=== PATIENT | female | born 1960 | race African-American/Black ===

== ENCOUNTER 2019-11-03 20:26 | Emergency (ER) | payer OTHER, SELFPAY ==
--- NOTE | ~2019-11-03 | XR_ITS ---
EXAMINATION: XR chest 1V INDICATION: Right-sided facial numbness TECHNIQUE: PA view of the chest is obtained. COMPARISON: None available FINDINGS: The lungs are free of acute opacities. There is no pleural effusion or pneumothorax. The ca rdiomediastinal silhouette is normal. There appear to be changes of right distal clavicle resection. IMPRESSION: 1. No acute cardiopulmonary abnormality. Reviewed, dictated and finalized at location A.
--- NOTE | ~2019-11-03 | CT_ITS ---
EXAMINATION: CTA brain carotid DATE: 11/03/2019 22:47 INDICATION: Headache and right lower facial numbness TECHNIQUE: Computed tomographic angiography (CTA) of the head was performed without and with 100 mL O mnipaque-350 intravenous contrast. CTA of the neck was performed with intravenous contrast. The dose- length product was 1758.03 mGy-cm. Maximum intensity projection and volume rendered 3D-reconstruction s were created by the technologist on a separate workstation. Automated exposure control and iterativ e reconstruction technique were employed. COMPARISON: None. FINDINGS: HEAD CTA: There is no intracranial hemorrhage, acute infarction, or abnormal mass lesion. The ventric les are normal. There is no abnormal mass effect or midline shift. The starkey-white matter differentiat ion is normal. The basal cisterns are patent. The orbits are normal. The paranasal sinuses, mastoids and calvarium are normal. There is no significant stenosis of the basilar artery or posterior cerebral arteries. There is no si gnificant stenosis of the intracranial internal carotid arteries or the anterior or middle cerebral a rteries. The anterior communicating artery and posterior communicating arteries are normal. There is no aneurysm. NECK CTA: Nodules of the left thyroid lobe measure up to 1.6 cm. The submandibular and parotid glands are symmetric. There is no lymphadenopathy. There are no masses identified. The airway is unremarkab le. There are no osseous abnormalities. The superior mediastinum is unremarkable. There is 0% stenosis of the proximal right internal carotid artery relative to normal distal artery l umen diameter (NASCET criteria). There is 0% stenosis of the proximal left internal carotid artery re lative to normal distal artery lumen diameter. IMPRESSION: 1. No acute intracranial abnormality. Normal head CTA. 2. 0% stenosis of the proximal right internal carotid artery relative to normal distal artery lumen d iameter (NASCET criteria). 3. 0% stenosis of the proximal left internal carotid artery relative to normal distal artery lumen di ameter. 4. Nodules of the left thyroid lobe. Consider nonemergent thyroid ultrasound for risk stratification. Reviewed, dictated and finalized at location A. IMPRESSION: 1. No acute intracranial abnormality. Normal head CTA. 2. 0% stenosis of the proximal right internal carotid artery relative to normal distal artery lumen diameter (NASCET criteria). 3. 0% stenosis of the proximal left internal carotid artery relative to normal distal artery lumen diameter. 4. Nodules of the left thyroid lobe. Consider nonemergent thyroid ultrasound fo r risk stratification.
[2019-11-03 20:35] VITALS: BP 151/86; PULSE 78; RESP 17; TEMP 36.4; O2SAT 98
--- NOTE | 2019-11-03 21:03 | ECG_ITS ---
Measurements Intervals [place] Rate: 61 P: 46 LA: 162 QRS: 41 QRSD: 97 T: -3 QT: 417 QTc: 421 Interpretive Statements SINUS RHYTHM BORDERLINE ST-T WAVE ABNORMALITY- ANTEROLAT/INF LEADS BASELINE ARTIFACT- I, III BORDERLINE ECG Electronically Signed On 11-04-2019 7:13:06 CDT by Yosi Nunez D.O.
[2019-11-03 21:34] LABS: Basophils Percent Auto 0.7 % (0.2-1.2); Eosinophils Absolute Auto 0.1 K/mm3 (0-0.3); Hematocrit 39.9 % (37.0-47.0); Hemoglobin 13.1 g/dL (12.0-15.0); Immature Granulocyte Absolute 0.01 K/mm3 (0.00-0.031); Immature Granulocyte Percent A 0.2 % (0-0.5); Lymphocytes Absolute Auto 2.79 K/mm3 (0.9-3.2); Lymphocytes Percent Auto 47.1 % (18.3-44.2); Mean Corpuscular HGB Conc 32.8 g/dl (32-36); Mean Corpuscular Volume 91.5 fl (80-100); Mean Platelet Volume 10.6 fl (7.4-10.4); Monocytes Absolute Auto 0.4 K/mm3 (0.1-0.6); Monocytes Percent Auto 6.9 % (2.6-8.5); Neutrophils Absolute Auto 2.6 K/mm3 (1.3-6.7); Neutrophils Percent Auto 44.1 % (45.5-73.1); Platelet Count Result 248 k/mm3 (150-375); Red Blood Count 4.36 M/mm3 (4.2-5.4); White Blood Count 5.9 K/mm3 (4.5-10.0)
[2019-11-03 21:44] LABS: Prothrombin Time 12.5 Seconds (11.1-14.7)
[2019-11-03 21:45] LABS: Partial Thromboplastin Time 24.4 SECONDS (22.3-36.8)
[2019-11-03 21:48] LABS: Blood Urea Nitrogen 15 mg/dL (7-17); Calcium 8.8 mg/dL (8.4-10.2); Carbon Dioxide 29 mmol/L (22-30); Chloride 108 mmol/L (98-107); Estimated CRCL calculation 88 ml/min; Estimated Glomerular Filt Rate > 60; Glucose 82 mg/dL (65-105); Potassium 3.8 mmol/L (3.4-5.0); Sodium 143 mmol/L (137-145)
--- NOTE | 2019-11-03 21:52 | ED.NEUROSD ---
HPI - Neuro Symptoms/Deficit General Chief Complaint: Neuro Symptoms/Deficit Stated Complaint: numbness for a week Time Seen by Provider: 11/03/19 21:31 History of Present Illness HPI Narrative: Patient presents with right cheek numbness for 1 week. She talked to her primary care physician about it today and he sent her to the ER to be checked for stroke. She has a history of hypertension that is well controlled, and she takes an aspirin a day. She does not have diabetes, but she does have gastroparesis. She had some vomiting 3 days ago, and continues to have intermittent nausea. She is on disability for, hypertension, hypercholesterolemia, and bilateral knee arthritis. She cares for her grown autistic daughter. She also cares for her father with mild dementia. She has no weakness, no pain, and has not been sick. She does not smoke cigarettes, drink alcohol, or do drugs. Onset (ago): week(s) Location: right face History of same: No Severity: mild Relieving factors: none Exacerbating factors: none Context: gradual onset Associated symptoms: denies other symptoms Treatments Prior to Arrival: Aspirin Related Data Allergies Allergy/AdvReac Type Severity Reaction Status Date / Time metronidazole Allergy Mild Rash Verified 09/17/13 09:14 Sulfa (Sulfonamide Allergy Mild RASH, Verified 09/17/13 09:14 Antibiotics) ITCHING clindamycin Allergy Unknown Verified 06/15/10 11:34 sulfanilamide Allergy Unknown Verified 06/15/10 11:34 Review of Systems Review of Systems: Narrative: CONSTITUTIONAL: Denies fever, chills, or sweats. EYES: Denies visual changes, redness, or discharge. ENT: Denies rhinorrhea, congestion, sore throat, or otalgia. CARDIOVASCULAR: Denies chest pain, palpitations, or edema. RESPIRATORY: Denies cough or dyspnea. GASTROINTESTINAL: Denies abdominal pain, but she does have nausea, and vomiting intermittently. GENITOURINARY: Denies dysuria or hematuria. SKIN: Denies rash or itching. MUSCULOSKELETAL: Denies back pain, joint pain, or myalgia. NEUROLOGIC: Denies headache, but does have facial numbness. PSYCHIATRIC: Denies anxiety or depression. All systems reviewed & are unremarkable except as noted in HPI and below PMFSH Past Medical History Medical History Gastroparesis Hypertension Morbid obesity Surgical History Surgical History History of tubal ligation Family History Family History (Updated 07/21/16 @ 23:56 by DOCTOR UNKNOWN) Father Hypertension Family history of elevated blood lipids Family history of diabetes mellitus in first degree relative Sibling Hypertension Family history of elevated blood lipids Family history of malignant neoplasm of breast in first degree relative, Onset Age: 54 Mother Family history of elevated blood lipids Cerebrovascular accident Family history of diabetes mellitus in first degree relative Family history of coronary artery disease, Onset Age: 71 Patient's mother is Other Family history of malignant neoplasm of breast Social History Social History Smoking status: Never smoker Second hand tobacco smoke exposure: No Alcohol intake: current Gender identity (if verbalized by the patient): Female Exam Narrative: Exam Narrative: GENERAL: Well-appearing, well-nourished, and in no acute distress. Overweight. HEAD: Normocephalic, atraumatic. EYES: PERRLA and EOMI. ENT: Nares clear, no rhinorrhea or epistaxis. Mucous membranes moist. NECK: Supple. CHEST: Clear to auscultation. No respiratory distress. HEART: Regular rate and rhythm. No murmur heard. Normal peripheral pulses. ABDOMEN: Soft, nontender, nondistended, normal active bowel sounds. EXTREMITIES: Normal range of motion. No edema. SKIN: Warm, dry, no rash. NEURO: No focal deficits. Alert and oriented x3
[2019-11-03 21:56] VITALS: BP 165/87; PULSE 56; RESP 18; O2SAT 98
--- NOTE | 2019-11-03 21:59 | PC.NURSE ---
Patient bedside glucose 87.
[2019-11-03 22:00] LABS: Troponin I < 0.012 ng/mL (0.000-0.034)
[2019-11-03 22:07] LABS: Glucose Point of Care 87 (65-105)
[2019-11-03 23:24] VITALS: BP 160/79; PULSE 75; RESP 20; TEMP 36.6; O2SAT 100
== END 2019-11-03 23:27 | disposition home or self-care (01) ==
PROVIDERS: Emergency Medicine Emergency Medical Services; Emergency Provider Emergency Medicine; PCP Emergency Medicine
DX: K31.84 Gastroparesis (principal); I10 Essential (primary) hypertension; Z79.82 Long term (current) use of aspirin; E66.01 Morbid (severe) obesity due to excess calories; Z68.41 Body mass index [BMI] 40.0-44.9, adult
CPT/HCPCS: 36415; 70496; 70498; 71045; 80048; 82948; 84484; 85025; 85610; 85730; 93005; 99284; Q9967

== ENCOUNTER 2020-01-30 16:36 | Outpatient (CLI) | payer OTHER, SELFPAY ==
--- NOTE | ~2020-01-30 | US_ITS ---
EXAMINATION: US thyroid EXAM DATE: 01/30/2020 17:27 INDICATION: Thyroid nodule. TECHNIQUE: Multiple grayscale and Doppler images of the thyroid were obtained (by a technologist who performed the scan) and subsequently reviewed. Individual nodules and recommendations may be reporte d in accordance with TI-RADS system as designated by the 2017 ACR White Paper TI-RADS committee. The re is no prior study for comparison. FINDINGS: The right thyroid lobe measures 4.1 x 1.4 x 4.7 cm, the left measuring 4.1 x 1.8 x 2.1 cm. There is m ildly diffusely heterogeneous thyroid echogenicity. In the left thyroid lobe there is heterogeneous echogenicity nodule measuring 2.4 x 1.3 x 1.6 cm, keeley id (2 points), hypoechoic (2 points), wider than tall, smooth margin, without echogenic foci, categor y TR4 for this nodule. TR 4 nodules 1.5 cm or greater can be considered for ultrasound-guided biopsy , assuming no prior thyroid ultrasounds at outside institution for comparison. In the right thyroid lobe there is a subcentimeter category TR 4 nodule not likely clinically signifi cant. IMPRESSION: Left thyroid lobe nodule large enough to consider ultrasound-guided biopsy. Reviewed, dictated and finalized at location A.
== END 2020-01-30 16:37 | disposition home or self-care (01) ==
PROVIDERS: PCP Emergency Medicine; Visit Provider Emergency Medicine
DX: E04.1 Nontoxic single thyroid nodule (principal)
CPT/HCPCS: 76536

== ENCOUNTER 2020-02-16 12:52 | Outpatient (CLI) | payer OTHER, SELFPAY ==
--- NOTE | ~2020-02-16 | US_ITS ---
EXAMINATION: US FNA w image guidance DATE: 02/16/2020 14:16 INDICATION: Left thyroid nodule TECHNIQUE: A time-out was performed to verify the patient's name, date of , and procedure to be performed . The procedure and its benefits and risks were discussed with the patient. Risks specifically discus sed included bleeding and infection. The patient understood the risks and agreed to proceed. The neck was prepped and draped in the usual sterile manner. 3 mL 1% lidocaine was used for local anesthesia . 6 passes were made with a 25G needle into the lesion. Appropriate needle location was documented with continuous sonographic guidance. The specimens were passed to the cardiology technologist in the room. A sterile bandage was applied. There were no immediate complications. FINDINGS: Grayscale ultrasound images demonstrate biopsy needles advanced into a 2.6 cm solid TI-RADS 4 left th yroid nodule. IMPRESSION: 1. Successful ultrasound-guided fine needle aspiration of the TI-RADS 4 left thyroid nodule of lexi rn which measures 2.6 cm in the current study. Reviewed, dictated and finalized at location A. [employer] IMPRESSION: 1. Successful ultrasound-guided fine needle aspiration of the TI-RADS 4 left t hyroid nodule of concern which measures 2.6 cm in the current study.
== END 2020-02-16 12:53 | disposition home or self-care (01) ==
PROVIDERS: PCP Emergency Medicine; Visit Provider Emergency Medicine
DX: E04.1 Nontoxic single thyroid nodule (principal)
CPT/HCPCS: 10005; 88173; 88305

== ENCOUNTER 2020-08-13 15:25 | Outpatient (CLI) | payer OTHER, SELFPAY ==
[2020-08-13 16:17] LABS: Hematocrit 34.8 % (37.0-47.0); Hemoglobin 11.2 g/dL (12.0-15.0); Mean Corpuscular HGB Conc 32.2 g/dl (32-36); Mean Corpuscular Hemoglobin 30.4 pg (26-34); Mean Corpuscular Volume 94.6 fl (80-100); Mean Platelet Volume 9.9 fl (7.4-10.4); Platelet Count Result 257 k/mm3 (150-375); Red Blood Count 3.68 M/mm3 (4.2-5.4); Red Cell Distribution Width 15.7 % (11.5-14.5); White Blood Count 6.1 K/mm3 (4.5-10.0)
[2020-08-13 16:32] LABS: Alanine Aminotransferase 13 U/L (4-35); Albumin Level 4.2 g/dL (3.5-5.1); Alkaline Phosphatase 67 U/L (38-126); Anion Gap 4 mmol/L (8-16); Aspartate Amino Transferase 22 U/L (14-36); Bilirubin,Total 0.3 mg/dL (0.2-1.3); Blood Urea Nitrogen 22 mg/dL (7-17); Calcium 9.5 mg/dL (8.4-10.2); Carbon Dioxide 27 mmol/L (22-30); Chloride 108 mmol/L (98-107); Cholesterol 166 mg/dL (0-200); Estimated Glomerular Filt Rate 43; Glucose 97 mg/dL (65-105); HDL Direct 43 mg/dL; Magnesium 2.3 mg/dL (1.6-2.3); Phosphorus 4.4 mg/dL (2.5-4.5); Potassium 4.6 mmol/L (3.4-5.0); Sodium 139 mmol/L (137-145); Triglycerides 107 mg/dL (<150)
[2020-08-13 16:40] LABS: Hemoglobin A1C 5.9 % (<5.7)
[2020-08-13 16:44] LABS: LDL Cholesterol Direct 94 mg/dL
[2020-08-13 17:29] LABS: Vitamin D 25 Hydroxy 65.6 ng/mL
== END 2020-08-13 15:26 | disposition home or self-care (01) ==
LOC: ANHLAB 15:28
PROVIDERS: PCP Emergency Medicine; Visit Provider Emergency Medicine
DX: E04.1 Nontoxic single thyroid nodule (principal); E11.9 Type 2 diabetes mellitus without complications; E78.5 Hyperlipidemia, unspecified; F41.1 Generalized anxiety disorder; G47.00 Insomnia, unspecified; G62.9 Polyneuropathy, unspecified; I10 Essential (primary) hypertension; J30.9 Allergic rhinitis, unspecified; K21.9 Gastro-esophageal reflux disease without esophagitis; M25.561 Pain in right knee; N32.81 Overactive bladder
CPT/HCPCS: 36415; 80061; 80069; 80076; 82306; 83036; 83735; 84443; 85027

== ENCOUNTER 2020-10-21 09:38 | Outpatient (CLI) | payer OTHER, SELFPAY ==
--- NOTE | ~2020-10-21 | CT_ITS ---
EXAMINATION: CT abdomen pelvis w con EXAM DATE: 10/21/2020 10:23 INDICATION: Abdominal pain. TECHNIQUE: Spiral CT of the abdomen and pelvis was performed following intravenous injection of 100 m L Omnipaque 350. Axial, coronal and sagittal images of the abdomen and pelvis were reviewed. The do se-length product (DLP) for this examination was 1164.52 mGy-cm. The exposure was tailored according to patient size (auto mA exposure control), and iterative reconstruction (ASIR) was used as addition al dose reduction technique. There is no prior study for comparison. FINDINGS: Small spleen size, but with multiple scattered subcentimeter hypodensities. Most likely chr onic granulomatous process. Microabscesses less likely. Isolated metastatic disease to spleen is rare . There is 1.5 cm right adrenal lesion statistically most likely adenoma but not meeting density crit eria on this postcontrast exam. The liver adrenal glands and pancreas are otherwise unremarkable. Ga llbladder is unremarkable. No biliary obstruction. Portal and splenic veins are patent. Kidneys en [place] symmetrically. There is no hydronephrosis. There is a 4 cm left renal midpole cyst. There are several punctate right calyceal stones. The uterus is unremarkable. The bladder is unremarkable. There is no retroperitoneal or pelvic lymphadenopathy. The appendix is normal. There is mild scattered colonic diverticulosis. There is no adjacent inflamm atory change to suggest diverticulitis. The stomach and small bowel are unremarkable. There is moder ate amount of colonic stool. No free intraperitoneal gas. The heart is normal in size. There are no pericardial or pleural effusions. The lung bases are unremarkable. There are no osteoblastic or osteolytic lesions identified. IMPRESSION: 1. No acute intra-abdominal findings. 2. Splenic and adrenal lesions most likely benign. Consider 6 month follow-up CT or MR abdomen witho ut and with contrast, adrenal protocol. 3. Punctate right nephrolithiasis. 4. Mild diverticulosis. 5. Moderate colonic stool. Reviewed, dictated and finalized at location B. IMPRESSION: 1. No acute intra-abdominal findings. 2. Splenic and adrenal lesions most likely benign. Consider 6 month follow-up CT or MR abdomen without and with contrast, adrenal protocol. 3. Punctate right nephrolithiasis. 4. Mild diverticulosis. 5. Moderate colonic stool.
[2020-10-21 10:10] LABS: Estimated Glomerular Filt Rate 51
== END 2020-10-21 09:39 | disposition home or self-care (01) ==
LOC: ANHIMG 09:43
PROVIDERS: PCP Emergency Medicine; Visit Provider Emergency Medicine
DX: R10.9 Unspecified abdominal pain (principal); D73.89 Other diseases of spleen; E27.9 Disorder of adrenal gland, unspecified
CPT/HCPCS: 74177; Q9967

== ENCOUNTER 2020-11-17 02:02 | Day surgery (SDC) | payer OTHER, SELFPAY ==
[2020-11-09 15:42] VITALS: BMI 38.2
[2020-11-17 09:46] VITALS: BP 142/71; PULSE 62; RESP 16; TEMP 35.9; O2SAT 99; BMI 36.7
--- NOTE | 2020-11-17 09:52 | WPDANESEPPF ---
Anes - Initial Pre Proc Eval Procedure: Operation Date: 11/17/20 10:45 Proposed Procedures p Esophagogastroduodenoscopy & Colonoscopy - Vlad Garcia MD Date/Time: 11/17/20 09:52 Surgeon: Vlda Garcia MD Pre Op Diagnosis: GERD, Iron Deficiency Anemia Patient Data Age: 60 Gender: F Height: 1.6 m Weight: 98 kg Allergies Allergy/AdvReac Type Severity Reaction Status Date / Time metronidazole Allergy Mild Rash Verified 11/17/20 09:43 Sulfa (Sulfonamide Allergy Mild RASH, Verified 11/17/20 09:43 Antibiotics) ITCHING clindamycin Allergy Unknown Other Verified 11/17/20 09:43 sulfanilamide Allergy Unknown Other Verified 11/17/20 09:43 cephalexin Allergy Hives Verified 11/17/20 09:43 tetracycline Allergy Hives Verified 11/17/20 09:43 Home Medications Medication Instructions Recorded Confirmed Type amlodipine 2.5 mg PO DAILY 11/09/20 11/17/20 History aspirin [Adult Low Dose Aspirin] 81 mg PO DAILY 11/09/20 11/17/20 History buspirone 10 mg PO BID 11/09/20 11/17/20 History calcium carbonate 600 mg PO DAILY 11/09/20 11/17/20 History carvedilol 6.25 mg PO BID 11/09/20 11/17/20 History cetirizine [Zyrtec] 10 mg PO DAILY 11/09/20 11/17/20 History citalopram 20 mg PO DAILY 11/09/20 11/17/20 History cyclobenzaprine 10 mg PO HS PRN 11/09/20 11/17/20 History famotidine 20 mg PO DAILY 11/09/20 11/17/20 History gabapentin 300 mg PO TID 11/09/20 11/17/20 History irbesartan-hydrochlorothiazide 1 tablet PO DAILY 11/09/20 11/17/20 History linaclotide [Linzess] 145 mcg PO DAILY 11/09/20 11/17/20 History montelukast 10 mg PO HS 11/09/20 11/17/20 History omeprazole 20 mg PO HS 11/09/20 11/17/20 History oxybutynin chloride 5 mg PO TID 11/09/20 11/17/20 History psyllium husk [Metamucil] 1 tbsp PO DAILY 11/09/20 11/17/20 History simvastatin 20 mg PO DAILY 11/09/20 11/17/20 History trazodone 100 mg PO HS 11/09/20 11/17/20 History Patient hx anesthesia problems: none Family hx anesthesia problems: none PMFSH Past Medical History Medical History (Updated 11/17/20 @ 09:56 by Cristobal Chavez MD) Anxiety Chronic GERD Depression Gastroparesis Hyperlipidemia Hypertension Morbid obesity Surgical History Surgical History History of tubal ligation Family History Family History (Updated 07/21/16 @ 23:56 by DOCTOR UNKNOWN) Father Hypertension Family history of elevated blood lipids Family history of diabetes mellitus in first degree relative Sibling Hypertension Family history of elevated blood lipids Family history of malignant neoplasm of breast in first degree relative, Onset Age: 54 Mother Family history of elevated blood lipids Cerebrovascular accident Family history of diabetes mellitus in first degree relative Family history of coronary artery disease, Onset Age: 71 Patient's mother is Other Family history of malignant neoplasm of breast Social History Social History Smoking status: Never smoker Second hand tobacco smoke exposure: No Alcohol intake: current Living arrangements: with family Gender identity (if verbalized by the patient): Female Spiritual care concerns: No Anes - Eval Final PreProcedure Day of Procedure 11/17/20 09:52 Patient weight: obese Heart: regular rate and rhythm Lungs: clear to auscultation and normal air movement Airway: Mallampati scale class II Neurological: alert and oriented Last oral intake: >/= 8 hours ASA classification: III Emergent: no Anesthetic plan: proceed Anesthesia type and monitoring: general GIVS Informed Consent: The patient's anesthetic plan and its attendant risks and benefits were discussed with the patient/family/POA. Questions were solicited and answers provided to the satisfaction of the patient/family/POA.
[2020-11-17] MEDS: LACTATED RINGERS 1,000 ML 150 ML IV CONT (10:03)
--- NOTE | 2020-11-17 11:16 | PM.HPGS ---
History of Present Illness History of Present Illness Consent: Risks, benefits, and alternatives have been discussed and questions answered. Patient agrees to proceed with procedure. Chief complaint: GERD, Iron Deficiency Anemia Narrative: Magaly Balbuena is a 60 year old female with tucker, denies overt gib. GERD on omeprazole and pepcid, had egd few years ago. Last colonoscopy 3 years ago with polyp. Review of Systems Constitutional: Constitutional: Denies headache(s) and Denies weakness Eyes: Eyes: Denies blurry vision ENT: Reports Normal hearing present, Denies headache(s) and Denies neck pain Cardiovascular: Cardiovascular: Denies chest pain and Denies dyspnea Respiratory: Respiratory: Denies dyspnea Gastrointestinal: Gastrointestinal: Reports no additional gastrointestinal complaints Genitourinary: Genitourinary: Denies dysuria Musculoskeletal: Musculoskeletal: Denies neck pain Integumentary/Breasts: Skin/Breast: Denies dry skin Neurologic: Reports Normal hearing present, Denies headache(s) and Denies weakness Psychiatric: Psychiatric: Denies anxiety Endocrine: Endocrine: Denies change in body appearance Hematologic/Lymphatic: Hematologic/Lymphatic: Denies easy bleeding Allergic/Immunologic: Allergic/Immunologic: Denies urticaria PMFSH Past Medical History Medical History (Updated 11/17/20 @ 11:19 by Vlad Garcia MD) Anxiety Chronic GERD Colon cancer screening Depression Gastroparesis Hyperlipidemia Hypertension Iron deficiency anemia Morbid obesity Surgical History Surgical History History of tubal ligation Family History Family History (Updated 07/21/16 @ 23:56 by DOCTOR UNKNOWN) Father Hypertension Family history of elevated blood lipids Family history of diabetes mellitus in first degree relative Sibling Hypertension Family history of elevated blood lipids Family history of malignant neoplasm of breast in first degree relative, Onset Age: 54 Mother Family history of elevated blood lipids Cerebrovascular accident Family history of diabetes mellitus in first degree relative Family history of coronary artery disease, Onset Age: 71 Patient's mother is Other Family history of malignant neoplasm of breast Social History Social History Smoking status: Never smoker Second hand tobacco smoke exposure: No Alcohol intake: current Living arrangements: with family Gender identity (if verbalized by the patient): Female Spiritual care concerns: No Meds Home Medications and Allergies Home Medications Medication Instructions Recorded Confirmed Type amlodipine 2.5 mg PO DAILY 11/09/20 11/17/20 History aspirin [Adult Low Dose Aspirin] 81 mg PO DAILY 11/09/20 11/17/20 History buspirone 10 mg PO BID 11/09/20 11/17/20 History calcium carbonate 600 mg PO DAILY 11/09/20 11/17/20 History carvedilol 6.25 mg PO BID 11/09/20 11/17/20 History cetirizine [Zyrtec] 10 mg PO DAILY 11/09/20 11/17/20 History citalopram 20 mg PO DAILY 11/09/20 11/17/20 History cyclobenzaprine 10 mg PO PRN 11/09/20 11/17/20 History famotidine 20 mg PO DAILY 11/09/20 11/17/20 History gabapentin 300 mg PO TID 11/09/20 11/17/20 History irbesartan-hydrochlorothiazide 1 tablet PO DAILY 11/09/20 11/17/20 History linaclotide [Linzess] 145 mcg PO DAILY 11/09/20 11/17/20 History montelukast 10 mg PO HS 11/09/20 11/17/20 History omeprazole 20 mg PO HS 11/09/20 11/17/20 History oxybutynin chloride 5 mg PO TID 11/09/20 11/17/20 History psyllium husk [Metamucil] 1 tbsp PO DAILY 11/09/20 11/17/20 History simvastatin 20 mg PO DAILY 11/09/20 11/17/20 History trazodone 100 mg PO HS 11/09/20 11/17/20 History Allergies Allergy/AdvReac Type Severity Reaction Status Date / Time metronidazole Allergy Mild Rash Verified 11/17/20 09:43 Sulfa (Sulfonamide Allergy Mild RASH, V
[2020-11-17 12:08] VITALS: BP 136/79; PULSE 117; RESP 22; O2SAT 100
[2020-11-17 12:18] VITALS: BP 133/67; PULSE 105; RESP 19; O2SAT 98
[2020-11-17 12:28] VITALS: BP 142/82; PULSE 104; RESP 26; O2SAT 100
== END 2020-11-17 12:43 | disposition home or self-care (01) ==
PROVIDERS: PCP Emergency Medicine; Visit Provider Internal Medicine Gastroenterology
PROC: 0DJ08ZZ Inspection of Upper Intestinal Tract, Via Natural or Artificial Opening Endoscopic (ICD-10-PCS; CPT 43235; principal; 2020-11-17 10:45)
DX: Z12.11 Encounter for screening for malignant neoplasm of colon (principal); K57.30 Diverticulosis of large intestine without perforation or abscess without bleeding; K64.8 Other hemorrhoids; K21.9 Gastro-esophageal reflux disease without esophagitis; D50.0 Iron deficiency anemia secondary to blood loss (chronic); K29.50 Unspecified chronic gastritis without bleeding; I10 Essential (primary) hypertension; E78.5 Hyperlipidemia, unspecified; F41.8 Other specified anxiety disorders; E66.9 Obesity, unspecified; Z68.36 Body mass index [BMI] 36.0-36.9, adult; Z79.82 Long term (current) use of aspirin
CPT/HCPCS: 45378; 43239; 88305; J2704; J7120

== ENCOUNTER 2021-01-28 18:19 | Emergency (ER) | payer OTHER, SELFPAY ==
--- NOTE | ~2021-01-28 | XR_ITS ---
EXAMINATION: XR lumbar spine 2-3V DATE: 01/28/2021 21:03 INDICATION: Low back pain radiating down the right leg. TECHNIQUE: 3 views of lumbar spine were obtained. COMPARISON: CT abdomen and pelvis FINDINGS: There is 3 degrees dextrocurvature of lumbar spine. Vertebral body heights are normal. Ther e is mildly decreased disc height at L3-L4 and L4-L5. There are endplate osteophytes at most levels. There is severe facet joint osteoarthritis in lower lumbar spine. Surgical clips in the right upper q uadrant are likely from cholecystectomy. IMPRESSION: 1. Mild lumbar spondylosis. Reviewed, dictated and finalized at location A. IMPRESSION: 1. Mild lumbar spondylosis.
[2021-01-28 18:56] VITALS: BP 124/60; PULSE 77; RESP 16; TEMP 36.5; O2SAT 96
[2021-01-28 19:24] LABS: Add Urine Microscopic? NO; Appearance Urine Clear (Clear); Bilirubin Urine Negative (Negative); Blood Urine Negative (Negative); Color Urine Yellow (Yellow); Glucose Urine UA Negative (Negative); Ketones Urine Negative (Negative); Leukocyte Esterase Ur Negative LEU/UL (Negative); Nitrate Urine Negative (Negative); Protein Urine Negative (Negative); Specific Grav Ur 1.018 (1.001-1.035); Urobilinogen Urine Negative mg/dL (<2.0)
--- NOTE | 2021-01-28 20:49 | ED.BACK ---
HPI - Back Pain/Injury General Chief Complaint: Back Pain/Injury Stated Complaint: back, right leg pain Time Seen by Provider: 01/28/21 20:41 Source: patient Mode of arrival: ambulatory Limitations: no limitations History of Present Illness HPI Narrative: This is a 60-year-old female that presents to the emergency department for low back pain since this morning. No known injury or trauma. Reports the pain radiates down the right leg. She took an anti-inflammatory this morning for pain. Denies fever, saddle anesthesia, or bowel/bladder incontinence. Related Data Home Medications Medication Instructions Recorded Confirmed amlodipine 2.5 mg PO DAILY 11/09/20 11/17/20 aspirin [Adult Low Dose Aspirin] 81 mg PO DAILY 11/09/20 11/17/20 buspirone 10 mg PO BID 11/09/20 11/17/20 calcium carbonate 600 mg PO DAILY 11/09/20 11/17/20 carvedilol 6.25 mg PO BID 11/09/20 11/17/20 cetirizine [Zyrtec] 10 mg PO DAILY 11/09/20 11/17/20 citalopram 20 mg PO DAILY 11/09/20 11/17/20 cyclobenzaprine 10 mg PO HS PRN 11/09/20 11/17/20 famotidine 20 mg PO DAILY 11/09/20 11/17/20 gabapentin 300 mg PO TID 11/09/20 11/17/20 irbesartan-hydrochlorothiazide 1 tablet PO DAILY 11/09/20 11/17/20 linaclotide [Linzess] 145 mcg PO DAILY 11/09/20 11/17/20 montelukast 10 mg PO HS 11/09/20 11/17/20 omeprazole 20 mg PO HS 11/09/20 11/17/20 oxybutynin chloride 5 mg PO TID 11/09/20 11/17/20 psyllium husk [Metamucil] 1 tbsp PO DAILY 11/09/20 11/17/20 simvastatin 20 mg PO DAILY 11/09/20 11/17/20 trazodone 100 mg PO HS 11/09/20 11/17/20 Allergies Allergy/AdvReac Type Severity Reaction Status Date / Time metronidazole Allergy Mild Rash Verified 11/17/20 09:43 Sulfa (Sulfonamide Allergy Mild RASH, Verified 11/17/20 09:43 Antibiotics) ITCHING clindamycin Allergy Unknown Other Verified 11/17/20 09:43 sulfanilamide Allergy Unknown Other Verified 11/17/20 09:43 cephalexin Allergy Hives Verified 11/17/20 09:43 tetracycline Allergy Hives Verified 11/17/20 09:43 Review of Systems Review of Systems: CONSTITUTIONAL: Denies fever SKIN: Denies rash MUSCULOSKELETAL: Reports back pain, joint pain, and myalgia. NEUROLOGIC: Denies numbness, or weakness. All systems reviewed & are unremarkable except as noted in HPI and below PMFSH Past Medical History Medical History (Updated 01/28/21 @ 21:15 by Mellissa Villarreal PA-C) Anxiety Chronic GERD Colon cancer screening Depression Gastroparesis Hyperlipidemia Hypertension Iron deficiency anemia Morbid obesity Surgical History Surgical History History of tubal ligation Family History Family History (Updated 07/21/16 @ 23:56 by DOCTOR UNKNOWN) Father Hypertension Family history of elevated blood lipids Family history of diabetes mellitus in first degree relative Sibling Hypertension Family history of elevated blood lipids Family history of malignant neoplasm of breast in first degree relative, Onset Age: 54 Mother Family history of elevated blood lipids Cerebrovascular accident Family history of diabetes mellitus in first degree relative Family history of coronary artery disease, Onset Age: 71 Patient's mother is Other Family history of malignant neoplasm of breast Social History Social History Smoking status: Never smoker Second hand tobacco smoke exposure: No Alcohol intake: current Gender identity (if verbalized by the patient): Female Spiritual care concerns: No Exam Narrative: GENERAL: Well-appearing, well-nourished, and in no acute distress. HEAD: Normocephalic, atraumatic. EYES: EOMI. CHEST: Clear to auscultation. No respiratory distress. No wheezes rales or rhonchi HEART: Regular rate and rhythm. No murmur heard. Normal peripheral pulses. ABDOMEN: Soft, nontender, nondistended, normal active bowel sounds. EXTREMITIES: Normal range of motion. No anna
[2021-01-28] MEDS: ACETAMINOPHEN 500 MG TABLET 1000 MG PO (21:15)
[2021-01-28] MEDS: KETOROLAC (*BKC) 60 MG/2 ML VIAL IM (21:16)
[2021-01-28 21:18] VITALS: BP 140/77; PULSE 65; RESP 16; O2SAT 100
[2021-01-28 22:27] VITALS: BP 131/69; PULSE 63; RESP 16; O2SAT 99
[2021-01-28] MEDS: FLUCONAZOLE 150 MG TABLET PO (22:29)
== END 2021-01-28 22:35 | disposition home or self-care (01) ==
PROVIDERS: Emergency Provider Emergency Medicine; PCP Emergency Medicine
DX: M54.41 Lumbago with sciatica, right side (principal); E78.5 Hyperlipidemia, unspecified; I10 Essential (primary) hypertension; K21.9 Gastro-esophageal reflux disease without esophagitis; D50.9 Iron deficiency anemia, unspecified; K31.84 Gastroparesis; F41.9 Anxiety disorder, unspecified; F32.A Depression, unspecified; E66.01 Morbid (severe) obesity due to excess calories; Z68.39 Body mass index [BMI] 39.0-39.9, adult; Z79.82 Long term (current) use of aspirin
CPT/HCPCS: 72100; 81003; 96372; 99283; A9270; J1885

== ENCOUNTER 2021-02-11 16:00 | Outpatient (CLI) | payer OTHER, SELFPAY ==
--- NOTE | ~2021-02-11 | MR_ITS ---
EXAMINATION: MR lumbar spine wo con DATE: 02/11/2021 16:57 INDICATION: Loss of right knee-jerk reflex. TECHNIQUE: Magnetic resonance imaging (MRI) of the lumbar spine was performed without intravenous con trast. Sequences included sagittal T2-weighted FSE, sagittal T2-weighted FS FSE, sagittal T1-weighted FSE, and axial T2-weighted FSE. COMPARISON: Lumbar spine radiographs 01/28/2021 FINDINGS: There is 5 degrees dextrocurvature of lumbar spine. Vertebral body heights are normal. Ther e is mildly decreased disc height at L3-L4. The distal spinal cord signal intensity is normal. The co nus medullaris is at L1. There is a 4.2 cm cyst in left kidney. The following disc levels are specifi eladia discussed: L1-L2: The disc does not extend beyond the endplate margin. There is mild bilateral facet joint osteo arthritis. There is no neural foraminal stenosis. There is no central canal stenosis. L2-L3: The disc is mildly bulging. There is severe bilateral facet joint osteoarthritis. There is mil d bilateral neural foraminal stenosis. There is no central canal stenosis. L3-L4: The disc is bulging. There is moderate bilateral facet joint osteoarthritis. There is mild rig ht and moderate left neural foraminal stenosis. There is mild central canal stenosis. L4-L5: The disc is bulging. There is a sequestered disc in right subarticular zone at the pedicular a nd intrapedicular level with severe stenosis of right lateral recess and mass effect on the exiting r ight L4 nerve root. There is severe bilateral facet joint osteoarthritis. There is mild bilateral migdalia ral foraminal stenosis. There is mild central canal stenosis. L5-S1: The disc does not extend beyond the endplate margin. There is severe bilateral facet joint ost eoarthritis. There is mild left neural foraminal stenosis. There is no central canal stenosis. IMPRESSION: 1. Moderate lumbar spondylosis. Of note, a sequestered disc at L4 exerts mass effect on the right L4 nerve root. Reviewed, dictated and finalized at location A. IMPRESSION: 1. Moderate lumbar spondylosis. Of note, a sequestered disc at L4 exerts mass e ffect on the right L4 nerve root.
== END 2021-02-11 16:01 | disposition home or self-care (01) ==
PROVIDERS: PCP Emergency Medicine; Visit Provider Emergency Medicine
DX: M54.41 Lumbago with sciatica, right side (principal); M47.816 Spondylosis without myelopathy or radiculopathy, lumbar region
CPT/HCPCS: 72148

== ENCOUNTER 2021-05-26 15:00 | Outpatient (RCR) | payer OTHER, SELFPAY ==
--- NOTE | 2021-04-19 16:25 | PTOPEVAL ---
Thank you for referring Magaly Balbuena to [facility].? The patient is scheduled to be seen for therapy? 2 x/week for 8 weeks. Please review, sign, date and return this plan of care GILLES. I agree with and certify that the following plan of care is medically necessary. Referring Physician Date Attending Provider: Ruben Waters MD Referring Provider: Ruben Waters MD Diagnosis low back pain Additional Evaluation Detail She has received previous therapy to address her knee and shoulder. Subjective Information She has increased back pain Query Text:As Reported By Patient/ since 03/06. She has a 300# Family autistic daughter she as to constantly redirect for activities. 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 C/o radiating pain into right buttock and upper thigh and burning right ankle. She does not perform a fitness or walking program. Pain Assessment Lower Back Reported Pain Level 5 Pain Description Burning,Heavy,Numbness, Radiating,Spasms,Tingling Pain Radiation Right Leg Lowest Pain Intensity 5 Greatest Pain Intensity 9 Pain Aggravating Factors ADL's,Bending,Exercise/ Activity,Lifting,Prolonged Position,Sitting,Walking, Weight Bearing/Standing Cervical and Lumbar ROM Lumbar ROM Lumbar Comments seated trunk flex: WNL rotation: WNL- pain to right side trunk ext: 25% painful Lower Extremity Muscle Strength Testing Hip Strength Bilateral Hip Flexion Strength 4- Good - Hip Extension Strength 3- Fair - Hip Abduction Strength 3- Fair - Knee Strength Bilateral Knee Flexion Strength 3+ Fair + Knee Extension Strength 4 Good Muscle Length Testing Muscle Length Testing Two-Joint Hip Flexor Shortened Muscles Short (R) Iliopsoas,Short (L) Iliopsoas,Short (R) Rectus Femoris,Short (L) Rectus Femoris,Short (R) Ilial Tib Band,Short (L) Ilial Tib Band Piriformis w/Hip Flexion <90 Degrees (R) Mild Tightness,(L) Mild
--- NOTE | 2021-05-03 11:24 | PCPTNOTE ---
Patient did not show up for scheduled appointment this date. Called and had to leave a message.
--- NOTE | 2021-05-05 11:03 | PCPTNOTE ---
Patient called & cancelled scheduled appointment this date due to daughter being sick.
--- NOTE | 2021-05-10 14:09 | PCPTNOTE ---
Patient called & cancelled scheduled appointment this date, patient stated she was going to being 15-20 mins.
--- NOTE | 2021-05-31 14:21 | PCPTNOTE ---
Patient called & cancelled scheduled appointment this date due to not feeling well.
--- NOTE | 2021-06-07 11:22 | PCPTNOTE ---
Patient did not show up for scheduled appointment this date. Called pt who states she thought her visit was at 1:30. She has been rescheduled for Sunday.
--- NOTE | 2021-06-10 13:56 | PCPTNOTE ---
Patient did not show up for scheduled appointment this date. Attempted to call pt due to repeated missed therapy visits.
--- NOTE | 2021-06-20 08:53 | PCPTNOTE ---
Admitting Provider: Attending Provider: Ruben Waters MD Patient:Magaly Balbuena Date of :1960 Physical Therapy Discharge Summary Patient has not returned for any further treatments since 05/26/2021, therefore she will be discharged at this time. Patient?s initial visit was on 04/19/2021 she had a total of 8 visits with 7 missed visits. The goals have been partially met at this time. Thank you for referring this patient to [facility]. Please review, sign, date and return this discharge summary GILLES. I have been updated about the patient's current status and I agree with discharge from the above service at this time. Referring Physician Date
== END 2021-06-20 15:37 | disposition home or self-care (01) ==
LOC: ANHPT 15:00
PROVIDERS: PCP Emergency Medicine; Referring Provider Emergency Medicine; Visit Provider Emergency Medicine
DX: M62.830 Muscle spasm of back (principal)
CPT/HCPCS: 97014; 97110; 97112; 97140; 97162; G0283

== ENCOUNTER 2022-01-03 09:50 | Outpatient (CLI) | payer OTHER, SELFPAY ==
--- NOTE | ~2022-01-03 | DEXA_ITS ---
Bone Density Report Name: JOHN DAVIDSON Age: 61 Sex: Female Ethnicity: Black Date of : 1960 Indication: postmenopausal; screening for osteoporosis; inflammatory bowel disease; Referring Provider: KAROL HOWARD Study: Bone densitometry was performed. Exam Date: January 03, 2022 Accession number: [id number] Bone Density: Region BMD T-score Z-score Classification AP Spine(L1-L4) 1.056 0.1 0.7 Normal Femoral Neck (Left) 0.638 -1.9 -1.2 Osteopenia Total Hip (Left) 0.897 -0.4 -0.1 Normal Femoral Neck (Right) 0.617 -2.1 -1.3 Osteopenia Total Hip (Right) 0.826 -0.9 -0.6 Normal Total Hip Mean 0.862 -0.7 -0.4 Normal World Health Organization criteria for BMD impression classify patients as: Normal (T-score at or above -1.0), Osteopenia (T-score between -1.0 and -2.5), or Osteoporosis (T-score at or below -2.5). 10-year Fracture Risk(1): Major Osteoporotic Fracture 3.8% Hip Fracture 0.5% Reported Risk Factors: [place] (Black), Neck BMD=0.617, BMI=38.3 (1) FRAX(R) Version 3.08. Fracture probability calculated for an untreated patient. Fracture probability may be lower if the patient has received treatment. Previous Exams: Region Exam Age BMD T-score BMD Change BMD Change Date g/cm2 vs Baseline vs Previous AP Spine (L1-L4) 01/03/2022 61 1.056 0.1 0.039 (3.8%)* 0.039 (3.8%)* 07/23/2018 58 1.017 -0.3 Total Hip(Left) 01/03/2022 61 0.897 -0.4 -0.024 (-2.6%) -0.024 (-2.6%) 07/23/2018 58 0.921 -0.2 Total Hip(Right) 01/03/2022 61 0.826 -0.9 -0.043 (-5.0%) -0.043 (-5.0%) 07/23/2018 58 0.870 -0.6 *Denotes significance at 95% confidence level, LSC for AP Spine = 0.022 g/cm2, LSC for Total Hip = 0.027 g/cm2 Clinical Information Provided by Patient: Has used the following medications: Vitamin D, Calcium Has the following medical conditions: Inflammatory bowel diseases Patient maximum height was 63 Menopause Age: 54 No regular weight bearing exercise Drinks caffeinated beverages Onset of menses at age 11 Number of children 2 Impression: The patient has low bone mass, based on the Right Femoral Neck T-score. The patient has an estimated ten-year risk of hip fracture of 0.5% and an estimated ten-year risk of major fracture of 3.8%, based on the WHO FRAX algorithm. The BMD for the Total Hip(Right) decreased, changing by -5.0% since the last DXA exam. Discussion: BONE DENSITY IS LOW AT ONE OR MORE
--- NOTE | ~2022-01-03 | MM_ITS ---
EXAMINATION: MM screening [facility] BI w vandana HISTORY: Screening mammogram, family history of breast cancer in her sister. TECHNIQUE: Craniocaudal and mediolateral oblique 3-D tomosynthesis images were obtained and synthetic 2-D images were generated. CAD analysis was submitted and interpreted. COMPARISON: 07/23/2018, 07/06/2014, 06/23/2014 BREAST PARENCHYMAL COMPOSITION: The breasts are almost entirely fatty. FINDINGS: Again noted is a stable cyst in the anterior third of the left breast. There is no suspicio us mass, calcification, or architectural distortion to suggest malignancy in either breast. There has been no suspicious interval change. IMPRESSION: 1. No mammographic evidence of malignancy. 2. Recommend routine screening mammography in one year. BI-RADS Category 2: Benign finding(s). Reviewed, dictated and finalized at location A.
== END 2022-01-03 09:51 | disposition home or self-care (01) ==
PROVIDERS: PCP Emergency Medicine; Visit Provider Obstetrics & Gynecology
DX: Z12.31 Encounter for screening mammogram for malignant neoplasm of breast (principal); Z78.0 Asymptomatic menopausal state; M85.851 Other specified disorders of bone density and structure, right thigh; M85.852 Other specified disorders of bone density and structure, left thigh
CPT/HCPCS: 77063; 77067; 77080

== ENCOUNTER 2023-01-11 13:15 | Outpatient (RCR) | payer OTHER, SELFPAY ==
--- NOTE | 2022-12-14 14:58 | OPREHPOC ---
Outpatient Therapy Plan of Care This is a Multidisciplinary Plan of Care that may contain components documented by all disciplines (PT, OT, and ST.) PT Problem 1 PT Problem #1 Knowledge Deficit PT Goal 1 Goal 1. Patient will perform independent HEP Target Visit 5 PT Goal 2 Goal 2. Patient will verbalize urge suppression strategies Target Visit 5 PT Problem 2 PT Problem #2 Impaired Functional ADLs PT Goal 1 Goal 1. Patient will report no more than 1 instance of incontinence per day Target Visit 5 PT Goal 2 Goal 2. Patient will be able to hold urge at least 30 minutes in order to wash dishes Target Visit 5 PT Problem 3 PT Problem #3 Impaired Strength PT Goal 1 Goal 1. Improve pelvic floor strength to 4/5 Target Visit 5 PT Goal 2 Goal 2. Improve pelvic floor endurance to 10 seconds Target Visit 5
--- NOTE | 2022-12-14 14:58 | PTOPEVAL1 ---
Assessment and note entered by Opal Murray DPT Evaluation Information Assessment Status Evaluation Subjective Information Pt reports she had a bladder sling within the last year and reports some things seem worse after. Can hold a very short amount of time and most of the time gets incontinence on the way to the bathroom. Incontinence is a significant volume each time. Reports urgency/incontinence if hearing running water like washing dishes. Wears overnight bladder pads, 5-7 a day. Changes clothes 3 times a day. Voids 5-6 times a day and 1-2 times at night. Has tried meds for overactive bladder but unsure if they are helping. Denies pain with urination. BM every 4 days to 1 time a week, no pain. Denies history of pelvic pain. Uterine ablation in 2013. Has been told she has IBS in the past. Pt has been 3 times, 2 vaginal deliveries with significant tearing with the first. Patient goal: strengthen bladder and at least make it to the bathroom. Reports frustration with frequent incontinence and having to change clothes , has to stop chores like washing dishes multiple times to void. Tired of wearing pads. Will see referring MD in 3-6 weeks. Reported Pain Level Pain Score 0: Self Report Assessment PT Clinical Summary The patient is presenting to skilled therapy with worsening urinary urgency, incontinence, and frequency. She presents with decreased pelvic floor strength and endurance and decreased core strength contributing to her incontinence multiple times a day and difficulty performing tasks like washing dishes. She will benefit from therapy to address her impairments to decrease her symptoms, decrease pad use, and educate on urge suppression techniques. Plan of Care Interventions Manual Therapy,Neuro Re-education,Patient/ Caregiver Education,Therapeutic Activities, Therapeutic Exercise PT Services Indicated Yes Treatment Frequency and 1 visit a week for 4 visits Duration These treatments will address the objective and functional deficits as defined above. The patient will be advanced safely and appropriately in order for the patient to progress towards his/her prior level of function. Additional exercises will be introduced and as well as a comprehensive home exercise program upon dis
--- NOTE | 2023-02-20 14:32 | PTOPDC ---
Assessment and note entered by Opal Murray, DPT Evaluation Information Assessment Status Discharge - Pt Not Present Subjective Information - Assessment PT Clinical Summary The patient has not attended therapy since 01/11/23 . She will be discharged this date. Plan of Care PT Services Indicated No
== END 2023-02-21 14:09 | disposition home or self-care (01) ==
LOC: ANHPT 13:15
PROVIDERS: PCP Emergency Medicine; Visit Provider Nurse Practitioner
DX: R35.0 Frequency of micturition (principal)
CPT/HCPCS: 97112; 97161; 97530; 99199

== ENCOUNTER 2023-03-12 14:50 | Outpatient (CLI) | payer OTHER, SELFPAY ==
--- NOTE | ~2023-03-12 | MM_ITS ---
EXAMINATION: MM screening [facility] BI w vandana HISTORY: Screening mammogram TECHNIQUE: Craniocaudal and mediolateral oblique 3-D tomosynthesis images were obtained and synthetic 2-D images were generated. CAD analysis was submitted and interpreted. COMPARISON: 01/03/2022, 08/02/2018 bilateral screening mammogram examinations BREAST PARENCHYMAL COMPOSITION: The breasts are almost entirely fatty. FINDINGS: There is no evidence of suspicious mass, calcification, or architectural distortion to sugg est malignancy in either breast. There has been no suspicious interval change. IMPRESSION: 1. No mammographic evidence of malignancy. 2. Recommend routine screening mammography in one year. BI-RADS Category 1: Negative Reviewed, dictated and finalized at location A. [employer]
== END 2023-03-12 14:51 | disposition home or self-care (01) ==
LOC: ANHIMG 14:53
PROVIDERS: Visit Provider Obstetrics & Gynecology
DX: Z12.31 Encounter for screening mammogram for malignant neoplasm of breast (principal)
CPT/HCPCS: 77063; 77067

== ENCOUNTER 2024-04-07 14:00 | Outpatient (RCR) | payer OTHER, SELFPAY ==
--- NOTE | 2024-03-18 14:31 | OPREHPOC ---
Outpatient Therapy Plan of Care This is a Multidisciplinary Plan of Care that may contain components documented by all disciplines (PT, OT, and ST.) PT Problem 1 PT Problem #1 Knowledge Deficit PT Goal 1 Goal / Goal Update *indep with HEP Target Visit 8 PT Problem 2 PT Problem #2 Pain PT Goal 1 Goal / Goal Update *pain rating of 3/10 at worst Target Visit 8 PT Goal 2 Goal / Goal Update * self assessment LE functional scale of 42% limitation in activity level Target Visit 8 PT Problem 3 PT Problem #3 Impaired Functional Mobility PT Goal 1 Goal / Goal Update * 2 minute walking test distance of 380' Target Visit 8 PT Problem 4 PT Problem #4 Impaired Range of Motion PT Goal 1 Goal / Goal Update *improve R ankle active ROM to improve gait pattern and transfer skills: active in long sitting: DF 5' & PF 50' Target Visit 8
--- NOTE | 2024-03-18 14:31 | PTOPEVAL1 ---
Assessment and note entered by Debbi Greene PT Evaluation Information Assessment Status Evaluation ICD-10 Condition Codes (PT) M25.571,R26.9,Weakness R53.1 Other ICD-10 Condition Codes ( R trimalleolar fracture closed S82.851D PT) Onset November 2023 Subjective Information R ankle fracture due to fall, had walking boot until Mar 10; did use the walker some with the boot on; no restrictions from dr, per pt: elevate leg and ice for swelling and go to therapy; have been taking it easy on her R ankle- not doing much; also having back pain-- flared up now; activity: not working; walk without device; GOAL: loosen up R ankle and not have pain with moving ankle; Reported Pain Level Pain Score Self Report Additional Pain Score Comments pain range in the past week 0-6/10; tightness over anterior ankle increase pain: walking/standing/activity tolerance 20 minutes decrease pain: sit, rest, ice, muscle spasm med occasionally; sleeping does not awaken her, but blankets heavy on her ankle with changing positions; does take sleeping meds have back pain and take meds for back pain Assessment PT Clinical Summary Magaly has the diagnosis of closed trimalleolar fracture after fall in November. Her walking boot was removed one week ago. LE functional scale rating of 53% limitation in activity level. Standing/walking tolerance reported of 20 minutes then have to sit down. Also reports knee and back pain. She does not work outside of the home. With the evaluation: she has decreased R ankle strength and ROM of all motions; most pain increase with PF motion; 2 minute walking test distance of 310'; she has poor positioning of R ankle with calcaneal eversion and valgus of knee. Skilled PT services are indicated for modalities to decrease pain, therapeutic exercises to increase ROM and strength of R ankle with education for HEP and gait pattern/ LE positioning Plan of Care Interventions Gait Training,Hot Pack/Cold Pack,Intermittent Compression,Manual Therapy,Neuro Re-education, Patient Education,Therapeutic Activities, Therapeutic Exercise,Ultrasound,Other Other Interventions fluidotherapy, taping PT Services Indicated Yes Treatment Frequency and 1-2x/wk for 8 visits Duration These treatments will address the objective and functional deficits as defined above. The patient will be advanced safely and appropriately in order for the patient to progress towards his/her prior level of function. Additional exercises will be introduced and as well as a comprehensive home exercise program upon discharge, if needed, ?to ensure carryover of functional gains achieved in the clinic. This treatment plan has been reviewed and agreement upon by the patient.
--- NOTE | 2024-03-18 14:32 | PCPTNOTE ---
pt was 15 minutes late for eval appt.
--- NOTE | 2024-04-30 14:43 | PTOPDC ---
Assessment and note entered by Debbi Greene,PT Assessment Status Discharge - Pt Not Present ICD-10 Condition Codes (PT) Pain in right ankle and joints of right foot M25. 571,Abnormalities of gait and mobility R26.9, Weakness R53.1 Other ICD-10 Condition Codes ( R trimalleolar fracture closed S82.851D PT) Onset November 2023 Subjective Information pt was not seen this date Assessment PT Clinical Summary Magaly has received 4 PT sessions, from March 18 to . She then stopped attending therapy. Discharge PT, the goals were not addressed. Plan of Care PT Services Indicated No
== END 2024-05-01 11:07 | disposition home or self-care (01) ==
LOC: ANHPT 14:00
PROVIDERS: Visit Provider Physician Assistant
DX: S82.851D Displaced trimalleolar fracture of right lower leg, subsequent encounter for closed fracture with routine healing (principal)
CPT/HCPCS: 97110; 97140; 97161; 97530